=== PATIENT | female | born 1960 | race Caucasian/White ===

== ENCOUNTER → 2018-06-22 | Outpatient (CLI) | payer MEDICARE, OTHER | LOC: CARDREHAB 11:51 → RAD 17:30 → VAS 17:30 | DX: I51.89 Other ill-defined heart diseases (principal); R07.9 Chest pain, unspecified; R53.81 Other malaise; R53.83 Other fatigue ==

== ENCOUNTER → 2020-02-12 | Outpatient (CLI) | payer MEDICARE, BC | LOC: RAD 09:52 | PROVIDERS: Psychiatry & Neurology Neurology | DX: M48.02 Spinal stenosis, cervical region (principal); M50.223 Other cervical disc displacement at C6-C7 level; Z98.1 Arthrodesis status | CPT/HCPCS: A9585 ==